=== PATIENT | female | born 1940 | race Caucasian/White ===

== ENCOUNTER 2019-03-13 16:18 | Observation (INO) | payer MEDICARE ==
--- NOTE | 2019-03-13 17:00 | RAD ---
Radiograph left ankle 2 views: date: 03/13/2019 Time: 4:52 PM HISTORY: 78-year-old female status post acute traumatic injury to left ankle FINDINGS: There is a posterior malleolar fracture with moderate posterior displacement of posterior fragment. T he posterior fragment is better aligned with the dome of the talus, such that there is posterior subluxation of the talus relative to the main, anterior distal tibial plafond and. The anterior aspec t of this tibial plafond is also widened. There is a nondisplaced transverse fracture of the medial malleolus. There is an oblique fracture of the distal metaphysis of the fibula, with at least mild me dial displacement of distal fragment. In general, at least a 3 view radiograph of the ankle is recommended for trauma for better characterization and description of fracture alignment. The ankle m ortise appears congruent on the AP view, but not on the lateral view. There is soft tissue edema. IMPRESSION: Acute, traumatic, trimalleolar fracture-subluxation of the ankle, with displacement of some of the fr actures.
--- NOTE | 2019-03-13 18:05 | RAD ---
RADIOGRAPH CHEST 1 VIEW: DATE: 03/13/2019 HISTORY: 78-year-old female for preoperative clearance. FINDINGS: There is no airspace density, pulmonary edema, or pneumothorax. The lateral costophrenic angles are n ot effaced. IMPRESSION: No acute pulmonary findings.
[2019-03-13 18:16] LABS: #Eosinphils 0.3 thou/uL (0.0-0.7); #Lymphocytes 1.8 thou/uL (1.20-3.40); #Monocytes 0.6 thou/uL (0.11-0.59); #Neutrophils 6.6 thou/uL (1.40-6.50); %Basophils 0.5 % (0.0-1.0); %Eosinophils 3.1 % (0.0-10.0); %Lymphocytes 19.4 % (21.0-51.0); %Monocytes 6.8 % (0.0-10.0); %Neutrophils 70.3 % (42.0-75.0); Hemoglobin 15.2 g/dL (12.0-16.0); Mean Corpuscular HGB CONC 32.9 g/dL (32.0-36.0); Mean Corpuscular Hemoglobin 28.7 pg (27.0-31.0); Mean Corpuscular Volume 87.2 fL (78.0-98.0); Mean Platelet Volume 7.6 fL (7.4-10.4); Platelet Count 282 thou/uL (130-400); RBC Distribution Width 13.2 % (11.5-14.5); Red Blood Cell (RBC) Count 5.28 mill/uL (4.20-5.40); White Blood Cell (WBC) Count 9.4 thou/uL (4.8-10.8)
[2019-03-13 18:18] LABS: INR-International Normal Ratio 0.9; Prothrombin Time 12.4 SEC (12.0-14.7)
[2019-03-13 18:19] LABS: PTT 31.4 SEC (22.9-36.1)
[2019-03-13 18:39] LABS: ALT (SGPT) 9 U/L (8-55); AST (SGOT) 23 U/L (5-34); Albumin 4.7 g/dL (3.4-4.8); Alkaline Phosphatase 108 U/L (40-150); Anion Gap 18 mmol/L (10-20); BUN (Urea Nitrogen) 15 mg/dL (9.8-20.1); Bilirubin, Total 0.3 mg/dL (0.2-1.2); Calc. Creatinine Clearance 0 mL/min (70-130); Calcium 10.3 mg/dL (7.8-10.44); Carbon Dioxide 21 mmol/L (23-31); Chloride 106 mmol/L (98-107); Estimated GFR-MDRD 58; Globulin 3.8 g/dL (2.4-3.5); Glucose 100 mg/dL (83-110); Protein, Total 8.5 g/dL (6.0-8.3); Sodium 140 mmol/L (136-145)
[2019-03-13] MEDS ORDERED: Ondansetron PF 4 MG/2 ML Vial IVP PRN (19:42)
[2019-03-13] MEDS ORDERED: Morphine 2 MG/ML SYRINGE SLOW IVP PRN (19:42)
[2019-03-13] MEDS ORDERED: Dextrose 50% Abboject 50 ML SYRINGE SLOW IVP PRN (19:42)
[2019-03-13] MEDS ORDERED: Dextrose 5% in Water 1,000 ML IV PRN (19:42)
[2019-03-13] MEDS ORDERED: hydrALAZINE 20 MG/ML VIAL SLOW IVP PRN (19:42)
[2019-03-13] MEDS ORDERED: Promethazine HCl 25 MG/ML VIAL IM PRN (19:42)
[2019-03-13] MEDS ORDERED: traMADol HCl 50 MG TAB PO PRN (19:47)
[2019-03-13] MEDS ORDERED: traMADol HCl 50 MG TAB PO SCH (20:00)
[2019-03-13] MEDS ORDERED: Ibuprofen 600 MG TAB PO SCH (20:00)
--- NOTE | 2019-03-13 20:12 | HP ---
REQUESTING PHYSICIAN: Dr. Da Silva. CONSULTS: Orthopedic Surgery, Dr. Lisa. HISTORY OF PRESENT ILLNESS: This is a 78-year-old woman, who was ambulating in her yard when she stepped in a hole causing her to twist her left ankle and fall. The patient reports no other injuries, but sudden left ankle pain and was unable to ambulate after falling. She denies hitting her head or any other injuries. The patient states that she is healthy and has had no previous illnesses. The patient denies any chest pain or shortness of breath. No dizziness prior to falling. The patient last ate at approximately 1:00 p.m. today. REVIEW OF SYSTEMS: A 10-point review of systems is negative unless otherwise indicated in the above HPI. PAST MEDICAL HISTORY: Hypothyroidism, high cholesterol. PAST SURGICAL HISTORY: Appendectomy, tonsillectomy. SOCIAL HISTORY: Former smoker, quit approximately 30 years ago. Denies any drug use. Lives at home with her . Denies alcohol use. ALLERGIES: NO KNOWN DRUG ALLERGIES. MEDICATIONS: Synthroid 175 mcg daily, pravastatin 10 mg daily, gemfibrozil 600 mg once a day. OBJECTIVE: VITAL SIGNS: Temperature 98.1, respirations 16, heart rate 68, 95% on room air, blood pressure 155/62. GENERAL: A well-appearing elderly female, awake and alert, in no distress. HEENT: Head is atraumatic, normocephalic. Pupils are equal. Mucous membranes moist. NECK: Trachea midline. No cervical tenderness. RESPIRATORY: Bilateral breath sounds clear. No wheezing, rales, or rhonchi. Respirations even and unlabored. CARDIOVASCULAR: Regular rate and regular rhythm. No murmur. No pedal edema. ABDOMEN: Soft, nontender, nondistended. Active bowel sounds. MUSCULOSKELETAL: Pelvis stable. No hip pain. EXTREMITIES: Left lower extremity in a posterior splint. Cap refill less than 2. Moves all extremities. Strength 5/5 in all extremities. Sensation intact in all extremities. NEUROLOGIC: No focal deficits. GCS 15. LABORATORY DATA: WBC 9.4, RBC 5.28, hemoglobin 15.2, hematocrit 46.1, platelets 282. Sodium 140, potassium 5.0, chloride 106, BUN 15, creatinine 0.93, estimated GFR 58, glucose 100, calcium 10.3, AST 23, ALT 9. DIAGNOSTIC DATA: Left ankle x-ray; trimalleolar fracture-subluxation of the ankle, with displacement of some of the fractures. Chest x-ray; no acute pulmonary findings. IMPRESSION: 1. Ground level fall. 2. Left trimalleolar fracture and subluxation of the ankle. 3. Acute traumatic pain. PLAN: We will admit the patient to the Surgical Ortho floor. We will place the patient n.p.o. after midnight and on maintenance fluids. Plan is for Dr. Lisa to take the patient to the OR tomorrow morning for repair of left ankle. The patient will be nonweightbearing to the left lower extremity. We will place the patient on pain regimen and mechanical DVT prophylaxis. We will place her on DVT prophylaxis postop. We will order a PT and OT consult to evaluate and treat postop. We will anticipate possible inpatient rehab. The plan has been discussed with the patient, who agrees. The plan will be discussed with the attending after this dictation. Job ID: [id number]
[2019-03-13] MEDS: Sodium Chloride 0.9% 1,000 ML IV SCH (20:27)
[2019-03-13] MEDS: Acetaminophen 1,000 MG in Premix Bag 1 BAG IVPB SCH (20:30)
[2019-03-13] MEDS: Senokot S 8.6-50 MG TAB PO SCH (20:32)
[2019-03-13] MEDS: Famotidine 20 MG TAB PO SCH (20:32)
[2019-03-13] MEDS ORDERED: CEFAZOLIN 2 GM in Premix Bag 1 BAG IVPB SCH (21:30)
--- NOTE | 2019-03-13 21:46 | CON ---
DATE OF CONSULTATION: 03/13/2019 REQUESTING PHYSICIAN: Dr. Jonny Kaplan. BRIEF HISTORY OF PRESENT ILLNESS: The patient is a pleasant 78-year-old lady who was walking in her backyard when she stepped in a hole, sustaining a twisting injury to her left ankle. She was then able to ambulate after this injury. Upon arrival at [facility], she had a sole complaint of left ankle pain. There was no loss of consciousness or syncopal episode either before or after the fall. Upon evaluation in the emergency room, she was found to have a deformity of the left ankle with x-rays revealing a trimalleolar ankle fracture. As such, the patient now admitted to the Trauma Service with Orthopedic consultation requested. PAST MEDICAL HISTORY: Remarkable for hypothyroidism and high cholesterol. PAST SURGICAL HISTORY: Includes tonsillectomy and appendectomy. MEDICATIONS: Include: 1. Synthroid. 2. Pravastatin. ALLERGIES: NONE KNOWN. FAMILY HISTORY: Noncontributory for this fracture. SOCIAL HISTORY: She lives with her . She has a past history of cigarette smoking, but quit many decades ago. She denies alcohol or drug use. REVIEW OF SYSTEMS: Denies recent fevers, chills, or sweats. Denies chest pain or shortness of breath. Denies numbness or tingling in lower extremity. She is otherwise a healthy 78-year-old. PHYSICAL EXAMINATION: VITAL SIGNS: Temperature 98.1, heart rate of 68, respiratory rate of 16, and blood pressure of 155/62. GENERAL: She is a very talkative, awake and alert lady who was examined in her hospital room at [place]. HEENT: Atraumatic and normocephalic. HEART: Shows a regular rate and rhythm without murmur. LUNGS: Clear to auscultation bilaterally with good breath sounds. CHEST: Nontender. ABDOMEN: Round and nontender. PELVIS: Stable. EXTREMITIES: Most remarkable for left lower extremity that is in a well-padded trilaminar short-leg splint. She is able to wiggle her toes. She has no pain with passive stretch. The knee and hip appear atraumatic. X-RAYS: Three-view x-ray of the left ankle remarkable for a trimalleolar ankle fracture with subluxation of the talus posteriorly with a large posterior malleolar fragment. LABORATORY DATA: White count of 9, hematocrit of 46.1, 282,000 platelets. She has an INR of 0.9. ASSESSMENT: This is a 78-year-old lady status post ground level fall sustaining left trimalleolar ankle fracture. PLAN: The patient is now admitted to the Trauma Service. We will proceed with an open reduction and internal fixation tomorrow afternoon. This evening, I discussed with the patient the nature of her fracture as well as the treatment of open reduction and internal fixation. A written consent will be obtained prior to surgery. She will receive 2 g of Ancef preoperatively. In the meantime, we will keep the ankle elevated as much as possible and had ice to help with swelling. Job ID: [id number]
[2019-03-13 22:53] VITALS: BMI 30.3
[2019-03-13] MEDS: traMADol HCl 50 MG TAB PO SCH (23:48)
[2019-03-14] MEDS: Acetaminophen 1,000 MG in Premix Bag 1 BAG IVPB SCH ×3 (02:58→15:32)
--- NOTE | 2019-03-14 03:12 | PRG ---
DATE OF SERVICE: 03/14/2019 SUBJECTIVE: The patient was admitted today, status post mechanical fall with a left trimalleolar fracture. She is to go to the OR later this morning with Dr. Lisa for fixation. She is n.p.o. at this time and is receiving normal saline at 70 an hour. Vital signs are stable. The patient seems to have been hypertensive with a systolic blood pressure in the 170s, which has improved overnight. She is not tachycardic, and afebrile. She is saturating 96% to 97% on room air. She has labs pending for the morning as well. She was restarted on all of her home medications, they do not include beta blockers or antihypertensives. Postoperatively, she will work with Physical and Occupational Therapy. She may need placement in acute rehab. Job ID: [id number]
[2019-03-14] MEDS: traMADol HCl 50 MG TAB PO SCH ×3 (05:24→23:08)
[2019-03-14] MEDS: Levothyroxine Sodium 75 MCG TAB PO SCH (05:26)
[2019-03-14 05:39] LABS: #Eosinphils 0.3 thou/uL (0.0-0.7); #Lymphocytes 1.8 thou/uL (1.20-3.40); #Monocytes 0.9 thou/uL (0.11-0.59); #Neutrophils 4.1 thou/uL (1.40-6.50); %Basophils 0.4 % (0.0-1.0); %Eosinophils 4.4 % (0.0-10.0); %Lymphocytes 25.5 % (21.0-51.0); %Monocytes 12.3 % (0.0-10.0); %Neutrophils 57.4 % (42.0-75.0); Hemoglobin 12.6 g/dL (12.0-16.0); Mean Corpuscular HGB CONC 33.8 g/dL (32.0-36.0); Mean Corpuscular Hemoglobin 29.2 pg (27.0-31.0); Mean Corpuscular Volume 86.4 fL (78.0-98.0); Mean Platelet Volume 7.3 fL (7.4-10.4); Platelet Count 214 thou/uL (130-400); Red Blood Cell (RBC) Count 4.32 mill/uL (4.20-5.40); White Blood Cell (WBC) Count 7.1 thou/uL (4.8-10.8)
[2019-03-14 05:56] LABS: Anion Gap 11 mmol/L (10-20); BUN (Urea Nitrogen) 17 mg/dL (9.8-20.1); Calc. Creatinine Clearance 78 mL/min (70-130); Calcium 9.3 mg/dL (7.8-10.44); Carbon Dioxide 25 mmol/L (23-31); Chloride 108 mmol/L (98-107); Estimated GFR-MDRD 69; Glucose 96 mg/dL (83-110); Magnesium 2.1 mg/dL (1.6-2.6); Phosphorus 4.7 mg/dL (2.3-4.7); Potassium 4.4 mmol/L (3.5-5.1); Sodium 140 mmol/L (136-145)
[2019-03-14] MEDS ORDERED: Ibuprofen 600 MG TAB PO SCH (06:00)
[2019-03-14] MEDS: Polyethylene Glycol 3350 17 GM Packet PO SCH (08:13)
[2019-03-14] MEDS: Senokot S 8.6-50 MG TAB PO SCH ×2 (08:13→20:10)
[2019-03-14] MEDS: Famotidine 20 MG TAB PO SCH ×2 (08:13→20:10)
--- NOTE | 2019-03-14 08:23 | CT ---
LEFT LOWER EXTREMITY CT SCAN WITHOUT IV COTNRAST: HISTORY: Preoperative planning, followup injury. COMPARISON: 03/13/2019 left akle. FINDINGS: Displaced trimalleolar fractures are noted involving the ankle with a prominent vertical component in volving the posterior malleolus extending into the central tibia articular surface with up to 0.8 cm of displacement. Minimally comminuted minimally displaced medial malleolar fracture. Minimally comm inuted moderately displaced vertical fracture of the distal fibula with some foreshortening and overr iding and up to 0.8 cm of displacement. Focal soft tissue posttraumatic fluid and swelling. Visuali zed hindfoot and mid foot otherwise appear intact. IMPRESSION: Comminuted displaced trimalleolar fractures. POS: TPC
[2019-03-14] MEDS: Sodium Chloride 0.9% 1,000 ML IV SCH (10:51)
[2019-03-14] MEDS ORDERED: ceFAZolin Sodium (SDC) 2 GM/100 ML BAG ONE (11:03)
[2019-03-14] MEDS ORDERED: Midazolam HCl 2 mg/2 ml Vial ONE (11:07)
[2019-03-14] MEDS ORDERED: Fentanyl 100 MCG/2 ML VIAL ONE ×2 (11:07→11:52)
[2019-03-14] MEDS ORDERED: Lidocaine 1% (PF) 30 ML VIAL ONE (11:11)
[2019-03-14] MEDS ORDERED: Ropivacaine 0.5% HCl/PF (150 MG/30 ML VIAL) ONE (11:45)
[2019-03-14] MEDS ORDERED: Bupivacaine HCl 0.5%/Epinephrine 1:200,000/PF 30 ml Vial ONE (11:45)
[2019-03-14] MEDS ORDERED: Promethazine HCl 25 MG/ML VIAL IM PRN ×2 (12:05→14:48)
[2019-03-14] MEDS ORDERED: traMADol HCl 50 MG TAB PO PRN ×3 (12:05→20:48)
[2019-03-14] MEDS ORDERED: Ropivacaine 0.2% 550 ML 550 ML NERVE BLCK SCH (12:05)
[2019-03-14] MEDS ORDERED: Zolpidem Tartrate 5 MG TAB PO PRN (12:05)
[2019-03-14] MEDS ORDERED: Ketorolac Tromethamine 30 MG/ML VIAL IVP PRN (12:05)
[2019-03-14] MEDS ORDERED: Ondansetron PF 4 MG/2 ML Vial IVP PRN (12:05)
[2019-03-14] MEDS ORDERED: Fentanyl 100 MCG/2 ML VIAL IV PRN (12:06)
[2019-03-14] MEDS ORDERED: HYDROcodone/Acetaminophen 7.5/325 mg Tablet PO PRN ×2 (12:06)
[2019-03-14] MEDS ORDERED: Ondansetron PF 4 MG/2 ML Vial ONE (13:07)
[2019-03-14] MEDS ORDERED: Lidocaine 1% PF 5 ML VIAL ONE (13:07)
[2019-03-14] MEDS ORDERED: PHENYLEPHRINE-NS 100 MCG/ML 10 ML SYRINGE ONE (13:07)
[2019-03-14] MEDS ORDERED: ePHEDrine 50 MG/ML VIAL ONE (13:07)
[2019-03-14] MEDS ORDERED: Rocuronium Bromide 10 MG/ML (10ML VIAL) ONE (13:07)
[2019-03-14] MEDS ORDERED: PROPOFOL 200 MG/20 ML VIAL ONE (13:07)
[2019-03-14] MEDS ORDERED: Glycopyrrolate 0.2 MG/ML 5 ML SYRINGE ONE (13:07)
[2019-03-14] MEDS ORDERED: Ondansetron HCl/PF 4 MG/2 ML Vial IVP PRN (14:48)
[2019-03-14] MEDS ORDERED: Promethazine HCl 25 MG/ML VIAL SLOW IVP PRN (14:48)
--- NOTE | 2019-03-14 15:26 | OP ---
DATE OF PROCEDURE: 03/14/2019 OPERATION: Open reduction and internal fixation of left trimalleolar ankle fracture. PREOPERATIVE DIAGNOSIS: Displaced left trimalleolar ankle fracture. POSTOPERATIVE DIAGNOSIS: Displaced left trimalleolar ankle fracture. COMPLICATIONS: None. ESTIMATED BLOOD LOSS: 100 mL. CORK CUTTER: Sonja Harvey. IMPLANTS: Synthes 1/3 tubular plate, 7 hole, and small fragment T-plate, 3 hole with nonlocking screws. INDICATIONS: Ms. Salcedo is a 78-year-old female who fell. She fractured her left ankle. She had a large posterior malleolus fracture and an unstable ankle. She was indicated for open reduction and internal fixation to restore anatomic alignment and promote healing. Risks have been reviewed in detail. DESCRIPTION OF PROCEDURE: Ms. Salcedo was identified in the preoperative holding area. Her correct extremity was marked. She was carried to the operating room. She was positioned supine. General anesthesia was induced. A multidisciplinary time-out was performed. The left lower extremity was prepped and draped in a sterile fashion. She was placed in a sloppy lateral position. At this point, we began the procedure with a posterolateral approach to the fibula and tibia. We dissected down through the subcutaneous tissues to the fascia, which was opened. We exposed the peroneal tendons. We then worked lateral to these and exposed the distal fibula. The distal fibular fracture was reduced using a reduction clamp after the bony edges were cleared and irrigated. Once we had an anatomic reduction, we placed our 1/3 tubular plate. Multiple screws were placed proximally and distally, holding the plate to the bone. We took x-ray images, confirming this. We then marked medial to the peroneal tendons. We encountered the distal tibia, posterior malleolar fracture. We reduced the fracture back into its anatomic position, pushing it anteriorly and distally. We then applied a T-plate across the fracture, placing screws proximally and distally, was serving as a buttress plate. Again, we took x-ray images. Finally, we made an incision over the medial malleolus. We reduced the medial malleolus using a reduction clamp. We then placed a single 4.0 partially-threaded screw across the malleolar fragment. This concluded hardware placement. We took final images including stress view x-ray, which was negative. We thoroughly irrigated with copious lavage. We then closed in layers. A sterile dressing and a splint were placed. The patient was taken to the recovery room in good condition. Job ID: [id number]
--- NOTE | 2019-03-14 17:40 | PRG ---
DATE OF SERVICE: 03/14/2019 SUBJECTIVE: This is a 78-year-old female, status post mechanical fall with a left trimalleolar fracture and subluxation of the ankle. The patient reports that her pain is well controlled. The patient had no overnight events. The patient voices no complaints at this time. OBJECTIVE: VITAL SIGNS: Temperature 98, pulse 68, respirations 14, SpO2 of 98% on room air, blood pressure 154/63. LABORATORY DATA: WBC 7.1, RBC 4.32, hemoglobin 12.6, hematocrit 37.3, platelets 214. Sodium 140, potassium 4.4, chloride 108, BUN 17, creatinine 0.81, estimated GFR 69, glucose 96, calcium 9.3 phosphorus 4.7, and magnesium 2.1. DIAGNOSTICS: Left lower extremity CT, comminuted displaced trimalleolar fractures. IMPRESSION: 1. Ground-level fall. 2. Left trimalleolar fracture and subluxation of the ankle. 3. Acute traumatic pain. PLAN: Continue n.p.o. for surgery. Continue supportive care and pain management. The patient will see PT and OT postop. Regular diet as tolerated postop. Rehab screen has been placed. The patient was examined by Dr. Paz during morning rounds. Job ID: [id number]
[2019-03-14] MEDS: Gemfibrozil 600 MG TAB PO SCH (18:06)
[2019-03-14] MEDS: CEFAZOLIN 2 GM in Premix Bag 1 BAG IVPB SCH (20:10)
[2019-03-14] MEDS ORDERED: Pravastatin Sodium 20 MG TAB PO SCH (21:00)
[2019-03-14] MEDS: Acetaminophen 500 MG TAB PO SCH (23:08)
--- NOTE | 2019-03-15 00:46 | PRG ---
DATE OF SERVICE: 03/14/2019 SUBJECTIVE: The patient was seen today during evening rounds. She was sitting up in bed with no signs of acute distress. She reported pain is well controlled. She is tolerating a regular diet and is working with Physical and Occupational Therapy. She is postop after an ORIF of the right trimalleolar ankle fracture. OBJECTIVE: VITAL SIGNS: The patient is afebrile, and hemodynamically stable. She is saturating 94% on room air. GENERAL: Well-appearing elderly female, sitting up in bed with no signs of acute distress. PULMONARY: Equal chest rise and fall. Clear breath sounds bilaterally. No signs of acute respiratory distress. ABDOMEN: Soft, nontender and nondistended. CARDIAC: Regular rate and rhythm. EXTREMITIES: 2+ pulses in all extremities. No significant swelling noted. Gross motor and sensation are intact. Left lower extremity with splint that is in place, clean and dry. NEUROLOGIC: GCS is 15. ASSESSMENT: 1. Status post mechanical fall from standing. 2. Left trimalleolar fracture with subluxation, status post repair. 3. History of hypothyroidism and hyperlipidemia. PLAN: Continue current diet and pain medication. We will discontinue IV fluids. Continue physical and occupational therapy. Continue previously restarted home medications. The patient would like to be discharged home, but will more likely need placement at inpatient rehab facility. Job ID: [id number]
[2019-03-15] MEDS: CEFAZOLIN 2 GM in Premix Bag 1 BAG IVPB SCH (04:59)
[2019-03-15] MEDS: Levothyroxine Sodium 75 MCG TAB PO SCH (05:02)
[2019-03-15] MEDS: Acetaminophen 500 MG TAB PO SCH ×3 (05:02→17:40)
[2019-03-15] MEDS: traMADol HCl 50 MG TAB PO SCH ×3 (05:05→17:41)
[2019-03-15] MEDS: Famotidine 20 MG TAB PO SCH (09:20)
[2019-03-15] MEDS: Senokot S 8.6-50 MG TAB PO SCH (09:20)
[2019-03-15] MEDS: Polyethylene Glycol 3350 17 GM Packet PO SCH (09:21)
[2019-03-15 16:01] VITALS: BP 135/71; TEMP 97.8
[2019-03-15] MEDS: Gemfibrozil 600 MG TAB PO SCH (17:40)
--- NOTE | 2019-03-15 18:23 | DIS ---
DATE OF ADMISSION: 03/13/2019 DATE OF DISCHARGE: 03/15/2019 ADMISSION DIAGNOSES: 1. Status post ground level fall. 2. Left trimalleolar fracture and subluxation of left ankle. 3. Acute traumatic pain. CONSULTATIONS: Orthopedics, Dr. Reid. PROCEDURES: Open reduction and internal fixation of left trimalleolar fracture. SUMMARY: The patient is a 78-year-old woman, who reportedly ambulating in her yard when she stepped in a hole causing to twist her left ankle. She was brought to the emergency department where she underwent evaluation and examination and was noted to have the above injury. The following day, she was able to be taken to the operating room where she underwent her above procedure, which she tolerated well. The patient began working with Physical and Occupational therapy. At the time of discharge, she was progressing with physical and occupational therapy and the patient was able to be discharged to rehab to continue her care. At the time of discharge, the patient's pain was controlled. She was tolerating a diet and again, she was progressing with physical and occupational therapy. She will follow up with Dr. Reid in 2 to 3 weeks or sooner as needed. She may follow up with the Trauma Clinic as needed. Job ID: [id number]
--- NOTE | 2019-03-16 17:19 | RAD ---
INTRAOPERATIVE FLUOROSCOPY 03/16/19 HISTORY: ORIF left ankle. EXPOSURE: 15.5 seconds. 0.58 mGy. FINDINGS: Three intraoperative fluoroscopic views demonstrate a metallic side plate with two screws traversing the distal fibula and lateral malleolus. There is a solitary screw traversing the medial malleolus. T here is a plate with screws traversing the posterior malleolus. IMPRESSION: Internal fixation hardware as above. POS: OFF
[2019-03-17] MEDS ORDERED: Ibuprofen 600 MG TAB PO SCH (22:00)
== END 2019-03-15 19:09 ==
LOC: ERS 16:18 → SURG A 17:45
PROVIDERS: ADMIT Surgery; ATTEND Surgery
PROC: 0QSK04Z Reposition Left Fibula with Internal Fixation Device, Open Approach (ICD-10-PCS; principal; 2019-03-13)
PROC: 0QSH04Z Reposition Left Tibia with Internal Fixation Device, Open Approach (ICD-10-PCS; 2019-03-13)
PROC: 3E0T3BZ Introduction of Anesthetic Agent into Peripheral Nerves and Plexi, Percutaneous Approach (ICD-10-PCS; 2019-03-13)
DX: S82.852A Displaced trimalleolar fracture of left lower leg, initial encounter for closed fracture (principal); G89.11 Acute pain due to trauma; G89.18 Other acute postprocedural pain; E03.9 Hypothyroidism, unspecified; E78.00 Pure hypercholesterolemia, unspecified; Z87.891 Personal history of nicotine dependence; W01.0XXA Fall on same level from slipping, tripping and stumbling without subsequent striking against object, initial encounter
CPT/HCPCS: 27816; 27822; 64448; 71045; 73600; 73610; 73700; 76000; 80048; 80053; 83735; 84100; 85025 ×2; 85610; 85730; 93005; 96361 ×2; 96365; 96366; 96375; 96376; 97116; 97139 ×4; 97530 ×3; 97535; 99285; A4306; C1713 ×3; G0378 ×4; 36415; J0131; J0670; J0690; J2001; J2250; J2405; J2704; J2795; J3010; J3490

== ENCOUNTER 2019-05-31 08:29 | Outpatient (CLI) | payer MEDICARE ==
--- NOTE | 2019-05-31 09:39 | BD ---
DEXA BONE DENSITY STUDY: HISTORY: Postmenopausal. History of fracture. LUMBAR SPINE BMD (g/cm2) T-SCORE L1 0.698 -2.7 L2 0.751 -2.5 L3 0.743 -3.1 L4 0.838 -2.0 TOTAL 0.760 -2.6 LEFT FEMORAL NECK 0.479 -3.3 TOTAL 0.548 -3.2 IMPRESSION: Osteoporosis of lumbar spine and left femoral neck. POS: AFTAB
== END 2019-05-31 08:30 | disposition home or self-care (01) ==
LOC: BICMAMMO 08:29
PROVIDERS: ATTEND Family Medicine
DX: Z13.820 Encounter for screening for osteoporosis (principal); S82.891A Other fracture of right lower leg, initial encounter for closed fracture; M81.0 Age-related osteoporosis without current pathological fracture
CPT/HCPCS: 77080

== ENCOUNTER 2020-09-25 10:45 | Outpatient (CLI) | payer MEDICARE ==
[2020-09-25 11:45] LABS: #Eosinphils 0.2 10x3/uL (0.0-0.5); #Monocytes 0.6 10x3/uL (0.0-1.1); #Neutrophils 2.8 10x3/uL (1.5-8.4); %Basophils 0.8 % (0.0-2.0); %Eosinophils 3.3 % (0.0-6.0); %Lymphocytes 28.5 % (18.0-47.0); %Monocytes 11.3 % (0.0-10.0); %Neutrophils 55.5 % (40.0-75.0); Hemoglobin 12.9 g/dL (12.0-15.5); Mean Corpuscular HGB CONC 30.9 g/dL (32.0-36.0); Mean Corpuscular Hemoglobin 27.7 pg (27.0-33.0); Mean Corpuscular Volume 89.5 fl (81.6-98.3); Mean Platelet Volume 10.3 fl (7.4-10.4); Platelet Count 277 10x3/uL (150-450); RBC Distribution Width 13.9 % (11.5-14.5); Red Blood Cell (RBC) Count 4.66 10x6/uL (3.90-5.03); White Blood Cell (WBC) Count 5.1 10x3/uL (3.5-10.5)
[2020-09-25 11:52] LABS: Anion Gap 12 mmol/L (10-20); BUN (Urea Nitrogen) 15 mg/dL (9.8-20.1); Calc. Creatinine Clearance 0 mL/min (70-130); Calcium 10.1 mg/dL (7.8-10.44); Carbon Dioxide 32 mmol/L (23-31); Chloride 103 mmol/L (98-107); Glucose 95 mg/dL (83-110); Potassium 4.6 mmol/L (3.5-5.1); Sodium 142 mmol/L (136-145)
[2020-09-25 12:06] LABS: INR-International Normal Ratio 1.1; PTT 36.5 sec (22.0-33.0)
[2020-09-25 19:07] LABS: SARS-CoV-2 PCR by NAA Not Detected (NotDetected)
== END 2020-09-25 10:46 | disposition home or self-care (01) ==
LOC: LABBT 10:45
PROVIDERS: ATTEND Internal Medicine Cardiovascular Disease
DX: Z01.818 Encounter for other preprocedural examination (principal); Z20.822 Contact with and (suspected) exposure to COVID-19; I48.3 Typical atrial flutter
CPT/HCPCS: 80048; 85025; 85610; 85730; U0003; U0005; 87635

== ENCOUNTER 2020-09-28 10:28 | Day surgery (SDC) | payer MEDICARE ==
[2020-09-26 15:08] VITALS: BMI 29.8
[~2020-09-28 10:28] MED LIST: Lidocaine 1% PF 5 ML VIAL ONE; PROPOFOL 200 MG/20 ML VIAL ONE
[2020-09-28] MEDS ORDERED: Hydrocortisone 1% Cream 30 GM TUBE ONE (13:06)
== END 2020-09-28 13:38 | disposition home or self-care (01) ==
LOC: CCL 10:28
PROVIDERS: ATTEND Internal Medicine Cardiovascular Disease
PROC: B24BZZ4 Ultrasonography of Heart with Aorta, Transesophageal (ICD-10-PCS; principal; 2020-09-28)
PROC: 5A2204Z Restoration of Cardiac Rhythm, Single (ICD-10-PCS; 2020-09-28)
DX: I48.3 Typical atrial flutter (principal); I48.91 Unspecified atrial fibrillation; I08.3 Combined rheumatic disorders of mitral, aortic and tricuspid valves; I10 Essential (primary) hypertension; E78.2 Mixed hyperlipidemia; E03.9 Hypothyroidism, unspecified; M81.0 Age-related osteoporosis without current pathological fracture; Z87.891 Personal history of nicotine dependence; Z79.01 Long term (current) use of anticoagulants; Z79.82 Long term (current) use of aspirin; Z79.83 Long term (current) use of bisphosphonates; Z79.899 Other long term (current) drug therapy
CPT/HCPCS: 92960; 93005; 93010; 93312; J2704